=== PATIENT | male | born 1995 | race Caucasian/White ===

== ENCOUNTER 2024-07-09 15:42 | Emergency (ER) | payer BC, SELFPAY ==
[2024-07-09 15:52] VITALS: BP 118/79; PULSE 65; RESP 20; TEMP 36.8; O2SAT 100
--- NOTE | 2024-07-09 16:02 | ED.GENADULT ---
HPI - General Adult General Chief complaint: Back Pain/Injury Stated complaint: back side pain Time Seen by Provider: 07/09/24 16:06 Source: patient, RN notes reviewed and old records reviewed Mode of arrival: ambulatory Limitations: no limitations History of Present Illness HPI narrative: 28-year-old male presents to the [facility] with complaints of left lower back pain. Patient reports 6:00 a.m. this morning he woke up to urinate and had left lower abdominal discomfort that started near the hip and gradually went to the bladder. Patient states that when he urinated he noticed a pink tinge to it. Denies any history of kidney stones. No treatment prior to arrival. Denies any abdominal pain currently. Denies any injury. States that he did play golf all day today and is now having some left lower back discomfort. No CVA tenderness. Onset (ago): hour(s) Related Data Allergies Allergy/AdvReac Type Severity Reaction Status Date / Time No Known Allergies Allergy Verified 07/09/24 16:27 Review of Systems Review of Systems: All systems reviewed & are unremarkable except as noted in HPI and below Constitutional: Constitutional: Reports no additional constitutional complaints ENT: Reports system reviewed and no additional complaints, except as documented Cardiovascular: Cardiovascular: Reports no additional cardiovascular complaints, Denies chest pain and Denies dyspnea Respiratory: Respiratory: Reports no additional respiratory complaints, Denies chest congestion, Denies cough and Denies dyspnea Gastrointestinal: Gastrointestinal: Reports as per HPI Genitourinary: Genitourinary: Reports no additional male genitourinary complaints Musculoskeletal: Musculoskeletal: Reports as per HPI and Reports back pain Integumentary/Breasts: Skin/Breast: Reports system reviewed and no additional complaints, except as docu PMFSH Comments At the time of my signature, I reviewed and agree with the nursing past medical, surgical, social, and family history. There is no relevant family history pertinent to the patient complaint. Exam Const: General: cooperative, healthy appearing, comfortable, no acute distress, well developed, alert and well nourished Nutritional Appearance: well nourished Orientation/consciousness: patient oriented x3 Limitations: no limitations HENMT: Head: normal to inspection Mouth: Yes Normal oral and palatal mucosa present, Yes lip normal, Yes tongue normal and Yes moist mucous membranes Eyes: General: appearance normal, both eyes and all related structures Alignment and Position: alignment normal Neck: Neck: normal visual inspection, full ROM, no lymphadenopathy and no meningeal signs Chest: Chest palpation & inspection: normal inspection of the chest Resp: Effort & Inspection: normal respiratory effort and able to speak in complete sentences Auscultation: clear to auscultation bilaterally, no crackles, no rales, no rhonchi and no wheezes Cardio: Rate: regular rate GI: Inspection: normal to inspection GI Palp: No abdominal tenderness, Yes Soft to palpation, No Tenderness to palpation present (GI) and No Guarding due to palpation present (GI) Auscultation: normal bowel sounds : General: Yes no CVA tenderness Skin: General skin exam: normal color and no rashes or lesions noted Neuro: General: patient oriented x3, gait normal, moves all extremities and no meningeal signs Cognition (Neuro): normal cognition Speech: normal speech Gait exam (Neuro): Normal gait present Extrem: General: normal to inspection, full ROM, capillary refill normal and normal gait Psych: Appearance: grossly normal and well kempt Mental Status: mental status grossly normal Speech and movement: Normal speech and movement present and Clear speech present Affect: normal affect Attitude: cooperative Course Course Level of Care: Express Care Visit Vital Signs Vital signs: Vital Signs Temperature 98.3 F 07/09/24 15:52 Pulse Rate 65 07/09/24 15:52 Respiratory Rate 20 07/09/24 15:52 Blood Pressure 118/79 07/09/24 15:52 Pulse Oximetry 100 07/09/24 15:52 Oxygen Delivery Room Air 07/09/24 15:52 Temperature 98.3 F 07/09/24 15:52 Pulse Rate 65 07/09/24 15:52 Respiratory Rate 20 07/09/24 15:52 Blood Pressure 118/79 07/09/24 15:52 Pulse Oximetry 100 07/09/24 15:52 Oxygen Delivery Room Air 07/09/24 15:52 Reviewed Medical Decision Making MDM Narrative Medical decision making narrative: Patient sitting in exam room. Patient is nontoxic, vitals are stable. Patient presents with having left lower abdominal pain that has resolved now having left lower back pain. With the patient's description of it starting at the hip and moving towards the bladder this morning, started after urinating. Now having low back pain most likely passed a kidney stone however discussed that it could be a strain of a muscle. Discussed this in great detail with patient and his father. Offered to do a urine dip and prescribe a muscle relaxer which they declined at this time. Discussed limited capabilities of an urgent care. Discharge instructions reviewed with patient, as well as provided in writing per nursing staff. The instructions also include specific and strict return/GO TO THE ER as well as f/u information. All questions have been answered, and the patient deny any further questions with discharge and discharge plan. Some parts of this dictation were generated by voice recognition software and may contain typographical and/or grammatical inaccuracies. Differential Diagnosis Differential Diagnosis: Kidney stone, low back strain, diverticulitis, acute abdomen Medical Records Medical records reviewed: Yes I reviewed the external patient's medical records. Vital Signs Vital Signs: Vital Signs Temperature 98.3 F 07/09/24 15:52 Pulse Rate 65 07/09/24 15:52 Respiratory Rate 20 07/09/24 15:52 Blood Pressure 118/79 07/09/24 15:52 Pulse Oximetry 100 07/09/24 15:52 Oxygen Delivery Room Air 07/09/24 15:52 Temperature 98.3 F 07/09/24 15:52 Pulse Rate 65 07/09/24 15:52 Respiratory Rate 20 07/09/24 15:52 Blood Pressure 118/79 07/09/24 15:52 Pulse Oximetry 100 07/09/24 15:52 Oxygen Delivery Room Air 07/09/24 15:52 Reviewed Lab Data Lab results reviewed: Yes I reviewed the patient's lab results. Labs: Reviewed Critical Care Time Critical Care Time Critical Care Time: No Discharge Plan Discharge Clinical Impression: Back pain Patient Disposition: Home Condition: Stable Instructions: Antibiotic Form, Kidney Stones (ED), Acute Low Back Pain (ED), Flank Pain (ED) Additional Instructions: Take Tylenol alternating with Motrin as needed for pain Follow-up with primary care provider For new or worsening symptoms go directly to the emergency room Patient Language: Greek Follow-up/Referrals: PHYSICIAN,VENEER JOINTER OFFBEARER [Primary Care Provider] - Time of Disposition: 16:27
== END 2024-07-09 16:30 | disposition home or self-care (01) ==
PROVIDERS: Emergency Provider Nurse Practitioner
DX: M54.50 Low back pain, unspecified (principal)
CPT/HCPCS: 99202; G0463